=== PATIENT | female | born 1990 | race Two or more races ===

== ENCOUNTER 2022-04-13 00:12 | Emergency (ER) | payer MEDICAID, OTHER ==
[~2022-04-13] VITALS: Ht 172.7 cm; Wt 65.8 kg
[2022-04-13 01:00] VITALS: BP 122/66
[2022-04-13] MEDS ORDERED: NALO4SPR BNOSTRILS (01:09)
--- NOTE | 2022-04-13 01:30 | NUR ---
Patient does not wish to proceed with medical care recommended by Dr. Baird. Patient given information related to possible complications, up to and including , which could occur as a result of leaving the hospital at this time. Patient verbalizes understanding of risks involved due to leaving against medical advice. Patient has signed AMA form.
== END 2022-04-13 01:30 | disposition left against medical advice (07) ==
LOC: ER 00:14
DX: T40.601A Poisoning by unspecified narcotics, accidental (unintentional), initial encounter (principal); Z79.899 Other long term (current) drug therapy; Y92.89 Other specified places as the place of occurrence of the external cause